=== PATIENT | male | born 1985 | race African-American/Black ===

== ENCOUNTER 2016-12-14 17:48 | Emergency (ER) | payer OTHER ==
[~2016-12-14] VITALS: Ht 180.3 cm; Wt 65.9 kg
[~2016-12-14 17:48] MED LIST: ASPI-891 PO; DOCU250C91 PO; PERCT PO
[2016-12-14 19:28] VITALS: BP 124/77
== END 2016-12-14 19:56 | disposition home or self-care (01) ==
LOC: EMS 17:50
DX: L91.0 Hypertrophic scar (principal); F12.90 Cannabis use, unspecified, uncomplicated; F17.210 Nicotine dependence, cigarettes, uncomplicated
CPT/HCPCS: 99282